=== PATIENT | male | born 1990 | race Caucasian/White ===

== ENCOUNTER 2021-03-22 11:02 | Emergency (ER) | payer SELFPAY ==
[2021-03-22 11:45] VITALS: BP 145/95; PULSE 83; RESP 18; TEMP 37.1; O2SAT 97; BMI 38.2
--- NOTE | 2021-03-22 11:52 | ECG_ITS ---
[facility] Test Date: 2021-03-22 Pat Name: Roberto Carlos Soriano Department: Room: Gender: Male Manager Developmental: : 1990 Requested By: Osman Vincent Order Number: [id number] Reading MD: ROZ LOPES Measurements Intervals [place] Rate: 73 P: 32 [place]: 167 QRS: -2 QRSD: 102 T: 21 QT: 366 QTc: 404 Interpretive Statements SINUS RHYTHM No previous ECG available for comparison Electronically Signed On 03-22-2021 18:59:54 OPERATIONS RESEARCH DIRECTOR by ROZ LOPES [id number]
--- NOTE | 2021-03-22 12:00 | ED_ITS ---
Documented by User: [email or web address] Poon 03/23/21 07:25 HPI - General Adult General: Chief complaint: Headache Stated complaint: headache pain in L arm, weakness Time Seen by Provider: 03/22/21 15:14 Source: patient Mode of arrival: ambulatory Limitations: no limitations History of Present Illness: HPI narrative: Patient is a 31-year-old male who presents to ED today for evaluation following an episode yesterday evening of chest pain, shortness of breath, left arm pain, headache. Patient states he did forget to take his blood pressure so is not sure if that could contribute to his symptoms. He has no previous cardiac history. He does have a history of anxiety and has had panic attacks previously with similar symptoms. He states upon arrival most of his symptoms have subsided. Associated symptoms: Reports chest pain (resolved now), dyspnea (resolved now) and headache(s) (subsided now); Deny malaise, nausea, rash, palpitations, syncope or vomiting Review of Systems Const: Denies: fever(s), chills, body aches, fatigue or malaise Eyes: Denies: change in vision, blurry vision, photophobia, floaters or seeing flashes ENMT: Denies: throat pain, odynophagia, nasal discharge or nasal congestion Card: Reports: chest pain (resolved now); Denies: palpitations, irregular heart rhythm, edema, swelling of feet/ankles, lightheadedness, syncope, pre-syncope, dyspnea on exertion, orthopnea, leg pain with exertion or acrocyanosis Resp: Reports: dyspnea (resolved now); Denies: productive cough, non-productive cough, pain on inspiration or chest congestion GI: Denies: abdominal pain, nausea, vomiting or diarrhea Musc: Denies: neck pain, back pain, extremity swelling, joint pain, joint swelling, joint redness, joint warmth or limited range of motion Skin/Breast: Denies: rash Neuro: Reports: headache(s) (subsided now); Denies: numbness in extremities, weakness in extremities, sensory changes or dizziness PFS ED PFSH: Medical History Essential hypertension Obesity with body mass index (BMI) of 30.0 to 39.9 Rhinitis, allergic Surgical History No pertinent past surgical history Family History Mother Diabetes Hypertension Social History Smoking and tobacco status: never smoked Second hand smoke exposure: No Smoking risk assessment/counseling performed?: No Alcohol intake: never Desire information about alcohol rehabilitation?: No Counseling given: No Desire information about substance/drug rehabilitation?: No Counseling given: No Adopted: No Caregiver/support person: No Lives independently: Yes Household members: family Housing: House Marital status: Single Number of children: 0 Highest education level completed: High School Graduate service: No Current occupational status: employed Current occupation: [employer] History of recent travel: No Leisure activites: games Current gender identity: Male Physical Exam Const: COMMON NORMALS: no acute distress, patient oriented x3, no limitations and alert GENERAL APPEARANCE: cooperative NUTRITIONAL APPEARANCE: obese HENMT: COMMON NORMALS: normocephalic and atraumatic HEAD & SCALP: normal to inspection, normocephalic and atraumatic FACE & SINUS: normal facial exam Eye: COMMON NORMALS: Equal, round and reactive pupils present and EOMs intact bilaterally GENERAL EYE: appearance normal, both eyes and all related structures PUPIL: Yes Equal, round and reactive pupils present Neck/C-Spine: COMMON NORMALS: full ROM and no lymphadenopathy CERVICAL SPINE: Yes cervical ROM normal Chest: COMMONS NORMALS: normal inspection of the chest and normal palpation of entire chest wall Resp: COMMON NORMALS: normal respiratory effort and clear to auscultation bilaterally AUSCULTATION: clear to auscultation bilaterally Cardio: COMMON NORMALS: regular rate and regular rhythm RATE: regular rate RHYTHM: regular rhythm GI: COMMON NORMALS: Normal to inspection, nondistended, normoactive bowel sounds present, Soft to palpation, non-tender, No hepatosplenomegaly present and no masses PALPATION: Yes Soft to palpation and Yes No hepatosplenomegaly present Extremity: COMMON NORMALS: normal to inspection, full ROM, capillary refill normal, no joint enlargement, no clubbing, cyanosis or edema, no calf tenderness and no pedal edema GENERAL: Yes normal exam except as noted Neuro: SHANKAR COMA SCALE: document GCS findings Shankar coma scale eye opening: Spontaneous Shankar coma scale verbal response: Orientated Powell coma scale motor response: Obey commands Powell coma scale total score: 15 COMMON NORMALS: patient oriented x3, CN's II-XII intact bilaterally, moves all extremities, no focal motor deficits, no sensory deficits noted and gait normal SENSORIUM/ORIENTATION: Yes alert Skin: COMMON NORMALS: no rashes or lesions noted GENERAL SKIN EXAM: no rashes or lesions noted Course Vital Signs: Vital signs: Vital Signs Temperature 98.7 F 03/22/21 11:45 Pulse Rate 84 03/22/21 15:40 Respiratory Rate 15 03/22/21 15:40 Blood Pressure 140/93 03/22/21 15:40 Pulse Oximetry 98 03/22/21 15:40 MDM - General Adult MDM Narrative: Medical decision making narrative: Brief history and physical exam was performed as part of the triage process. Due to current ED wait time patient will be placed in waiting room until a room becomes available. Explained to patient he/she will be seen in order of severity. Patient is currently safe to wait in the waiting room until we can get them placed. Patient informed that if condition worsens at any time to please let the front desk worker know. Upon arrival most of patient's symptoms have resolved. His vital signs are stable. Work-up including CBC, CMP, troponin were all unremarkable. CXR is normal. EKG without ischemic findings. At this time I would recommend follow- up with his primary care provider if symptoms persist. Strict return to ED precautions given. Lab Data: Labs: Lab Results 03/22/21 03/22/21 03/22/21 13:15 13:15 13:15 WBC 8.8 10^3/uL 10^3/ uL (4.0-10.0) RBC 5.48 10^6/uL H 10 ^6/uL (4.1-5.3) Hgb 15.5 g/dL g/dL (11.7-16.6) Hct 45.7 % % (42.0-52.0) MCV 83.4 fl fl (80-94) MCH 28.3 pg pg (28.0-34.0) MCHC 33.9 g/dL g/dL (30.0-36.0) RDW 12.0 % L % (12.1-15.1) Plt Count 338 10^3/cmm 10^3 /cmm (130-400) MPV 9.7 fL fL (7.4-10.4) Neut % (Auto) 54.5 % % Lymph % (Auto) 35.5 % % Tyler % (Auto) 7.3 % % Eos % (Auto) 2.0 % % Baso % (Auto) 0.5 % % Neut # (Auto) 4.81 10^3/uL 10^3 /uL (1.8-7.7) Lymph # (Auto) 3.1 10^3/uL 10^3/ uL (0.8-4.8) Tyler # (Auto) 0.6 10^3/uL 10^3/ uL (0.2-0.9) Eos # (Auto) 0.2 10^3/uL 10^3/ uL (0.0-0.8) Baso # (Auto) 0.0 10^3/uL 10^3/ uL (0.0-0.1) Nucleated RBC % (a uto) 0 % % Nucleated RBCs # 0.0 /100WBC /100W BC Sodium 137 mmol/L mmol/L (136-145) Potassium 4.4 mmol/L mmol/L (3.5-5.1) Chloride 99 mmol/L mmol/L (98-107) Carbon Dioxide 21 mmol/L L mmol/ L (22-29) Anion Gap 21.4 H (5-19) BUN 12 mg/dL mg/dL (6-20) Creatinine 0.7 mg/dL mg/dL (0.7-1.2) GFR Calculation 129.9 mL/min mL/m in (90-130) Glucose 88 mg/dL mg/dL (65-115) Calculated Osmolal ity 283 mOsm/kg L mOs m/kg (285-295) Calcium 9.3 mg/dL mg/dL (8.5-10.5) Total Bilirubin 0.4 mg/dL mg/dL (0.15-1.2) AST 28 U/L U/L (0-40) ALT 55 U/L H U/L (0-41) Alkaline Phosphata se 66 IU/L IU/L (40-130) Troponin T Gen 5 n g/L 6 ng/L ng/L (0-15) Total Protein 8.0 g/dL g/dL (6.6-8.7) Albumin 4.9 g/dL g/dL (3.5-5.2) Globulin 3.1 g/dL g/dL (1.3-4.6) Imaging Data^: CXR: Radiologist's impression: [address] [address] XRay Report Signed Patient: Roberto Carlos Soriano Unit #: [id number] : 1990 Age/Sex: 31 / M ADM Date: 03/22/21 Loc: ER Room/Bed: Attending Dr: Ordering Provider/Ordering MD: Feli Crespo Date of Service: 03/22/21 Procedure(s): XR chest 1V portable [id number] Accession Number(s): [id number] Report Number: [id number] WS: [id number] Exam: XR chest 1V portable [id number] Date/Time of Exam: 03/22/2021 12:03 PM Reason For Exam: chest pain No priors. Findings: The lungs are clear and fully expanded. Costophrenic angles are sharp. No infiltrates. Bronchovascular relief appears normal. Cardiac silhouette is unremarkable. Bony elements are intact. XR/XR chest 1V portable [id number] IMPRESSION: Unremarkable chest radiograph. Dictated By: Keegan Dave DO Signed By: Keegan Dave DO Signed Date/Time: 03/22/21 121 DD/ 1213 Discharge Plan Discharge Patient Disposition: Home Clinical Impression: Essential hypertension, Anxiety Condition: Stable Prescriptions: No Action bupropion HCl [Wellbutrin XL] 150 mg tablet extended release 24 hr 150 mg PO QAM Qty: 100 RF: 0 valsartan [Diovan] 80 mg tablet 80 mg PO DAILY Qty: 100 RF: 0 Discharge Orders: Discharge ED (Routine); Ordered 03/22/21 Ordered By: Feli Crespo Referrals: Trav Ann, [facility] [Primary Care Provider] - Activity Restrictions/Additional Instructions: As we discussed please follow-up with your primary care provider this week if possible for reevaluation especially if symptoms persist. You may return to the emergency department for any worsening discomfort or any new or concerning symptoms. Coding Level of Care Code ED Journeyman Power Plant Operator for Chg Fwd Exam Comprehensive Documented by User: Osman Donato DO 03/25/21 06:47 HPI - General Adult General: Chief complaint: Headache Stated complaint: headache pain in L arm, weakness Time Seen by Provider: 03/22/21 15:14 PFSH ED PFSH: Medical History Essential hypertension Obesity with body mass index (BMI) of 30.0 to 39.9 Rhinitis, allergic Surgical History No pertinent past surgical history Family History Mother Diabetes Hypertension Social History Smoking and tobacco status: never smoked Second hand smoke exposure: No Smoking risk assessment/counseling performed?: No Alcohol intake: never Desire information about alcohol rehabilitation?: No Counseling given: No Desire information about substance/drug rehabilitation?: No Counseling given: No Adopted: No Caregiver/support person: No Lives independently: Yes Household members: family Housing: House Marital status: Single Number of children: 0 Highest education level completed: High School Graduate service: No Current occupational status: employed Current occupation: [employer] History of recent travel: No Leisure activites: games Current gender identity: Male Course Vital Signs: Vital signs: Vital Signs Temperature 98.7 F 03/22/21 11:45 Pulse Rate 84 03/22/21 15:40 Respiratory Rate 15 03/22/21 15:40 Blood Pressure 140/93 03/22/21 15:40 Pulse Oximetry 98 03/22/21 15:40 MDM - General Adult MDM Narrative: Medical decision making narrative: Chart reviewed and patient discussed with midlevel. Agree with assessment and plan. Lab Data: Labs: Lab Results 03/22/21 03/22/21 03/22/21 13:15 13:15 13:15 WBC 8.8 10^3/uL 10^3/ uL (4.0-10.0) RBC 5.48 10^6/uL H 10 ^6/uL (4.1-5.3) Hgb 15.5 g/dL g/dL (11.7-16.6) Hct 45.7 % % (42.0-52.0) MCV 83.4 fl fl (80-94) MCH 28.3 pg pg (28.0-34.0) MCHC 33.9 g/dL g/dL (30.0-36.0) RDW 12.0 % L % (12.1-15.1) Plt Count 338 10^3/cmm 10^3 /cmm (130-400) MPV 9.7 fL fL (7.4-10.4) Neut % (Auto) 54.5 % % Lymph % (Auto) 35.5 % % Tyler % (Auto) 7.3 % % Eos % (Auto) 2.0 % % Baso % (Auto) 0.5 % % Neut # (Auto) 4.81 10^3/uL 10^3 /uL (1.8-7.7) Lymph # (Auto) 3.1 10^3/uL 10^3/ uL (0.8-4.8) Tyler # (Auto) 0.6 10^3/uL 10^3/ uL (0.2-0.9) Eos # (Auto) 0.2 10^3/uL 10^3/ uL (0.0-0.8) Baso # (Auto) 0.0 10^3/uL 10^3/ uL (0.0-0.1) Nucleated RBC % (a uto) 0 % % Nucleated RBCs # 0.0 /100WBC /100W BC Sodium 137 mmol/L mmol/L (136-145) Potassium 4.4 mmol/L mmol/L (3.5-5.1) Chloride 99 mmol/L mmol/L (98-107) Carbon Dioxide 21 mmol/L L mmol/ L (22-29) Anion Gap 21.4 H (5-19) BUN 12 mg/dL mg/dL (6-20) Creatinine 0.7 mg/dL mg/dL (0.7-1.2) GFR Calculation 129.9 mL/min mL/m in (90-130) Glucose 88 mg/dL mg/dL (65-115) Calculated Osmolal ity 283 mOsm/kg L mOs m/kg (285-295) Calcium 9.3 mg/dL mg/dL (8.5-10.5) Total Bilirubin 0.4 mg/dL mg/dL (0.15-1.2) AST 28 U/L U/L (0-40) ALT 55 U/L H U/L (0-41) Alkaline Phosphata se 66 IU/L IU/L (40-130) Troponin T Gen 5 n g/L 6 ng/L ng/L (0-15) Total Protein 8.0 g/dL g/dL (6.6-8.7) Albumin 4.9 g/dL g/dL (3.5-5.2) Globulin 3.1 g/dL g/dL (1.3-4.6) Discharge Plan Discharge Patient Disposition: Home Clinical Impression: Essential hypertension, Anxiety Condition: Stable Prescriptions: No Action bupropion HCl [Wellbutrin XL] 150 mg tablet extended release 24 hr 150 mg PO QAM Qty: 100 RF: 0 valsartan [Diovan] 80 mg tablet 80 mg PO DAILY Qty: 100 RF: 0 Discharge Orders: Discharge ED (Routine); Ordered 03/22/21 Ordered By: Feli Crespo Referrals: Trav Ann, [facility] [Primary Care Provider] - Activity Restrictions/Additional Instructions: As we discussed please follow-up with your primary care provider this week if possible for reevaluation especially if symptoms persist. You may return to the emergency department for any worsening discomfort or any new or concerning symptoms. Coding Level of Care Code ED Journeyman Power Plant Operator for Lenard Fwd Exam Comprehensive
--- NOTE | 2021-03-22 12:01 | XR_ITS ---
WS: [id number] Exam: XR chest 1V portable [id number] Date/Time of Exam: 03/22/2021 12:03 PM Reason For Exam: chest pain No priors. Findings: The lungs are clear and fully expanded. Costophrenic angles are sharp. No infiltrates. Bronchovascula r relief appears normal. Cardiac silhouette is unremarkable. Bony elements are intact. XR/XR chest 1V portable [id number] IMPRESSION: Unremarkable chest radiograph.
[2021-03-22 13:49] LABS: Basophils % 0.5 %; Eosinophils # 0.2 10^3/uL (0.0-0.8); Hematocrit 45.7 % (42.0-52.0); Hemoglobin 15.5 g/dL (11.7-16.6); Lymphocytes # 3.1 10^3/uL (0.8-4.8); Lymphocytes % 35.5 %; Mean Corpuscular HGB Conc 33.9 g/dL (30.0-36.0); Mean Corpuscular Hemoglobin 28.3 pg (28.0-34.0); Mean Corpuscular Volume 83.4 fl (80-94); Mean Platelet Volume 9.7 fL (7.4-10.4); Monocytes # 0.6 10^3/uL (0.2-0.9); Monocytes % 7.3 %; Neutrophils # 4.81 10^3/uL (1.8-7.7); Neutrophils % 54.5 %; Nucleated Red Blood Cells % 0 %; Platelet Count 338 10^3/cmm (130-400); Red Blood Count 5.48 10^6/uL (4.1-5.3); White Blood Count 8.8 10^3/uL (4.0-10.0)
[2021-03-22 14:09] LABS: Alanine Aminotransferase 55 U/L (0-41); Albumin Level 4.9 g/dL (3.5-5.2); Alkaline Phosphatase 66 IU/L (40-130); Anion Gap 21.4 (5-19); Aspartate Amino Transferase 28 U/L (0-40); Blood Urea Nitrogen 12 mg/dL (6-20); Calcium 9.3 mg/dL (8.5-10.5); Carbon Dioxide 21 mmol/L (22-29); Chloride 99 mmol/L (98-107); Globulin 3.1 g/dL (1.3-4.6); Glomerular Filtration Rate 129.9 mL/min (90-130); Glucose 88 mg/dL (65-115); Osmolality Calculated 283 mOsm/kg (285-295); Potassium 4.4 mmol/L (3.5-5.1); Sodium 137 mmol/L (136-145); Total Bilirubin 0.4 mg/dL (0.15-1.2)
[2021-03-22 14:11] LABS: Troponin T (5th) Once 6 ng/L (0-15)
[2021-03-22 15:40] VITALS: BP 140/93; PULSE 84; RESP 15; O2SAT 98
== END 2021-03-22 15:40 | disposition home or self-care (01) ==
PROVIDERS: Emergency Provider Physician Assistant; PCP Nurse Practitioner
DX: F41.9 Anxiety disorder, unspecified (principal); I10 Essential (primary) hypertension
CPT/HCPCS: 71045; 80053; 84484; 85025; 93005; 99283